=== PATIENT | female | born 1960 | race Caucasian/White ===

== ENCOUNTER 2017-01-10 09:42 | Emergency (ER) | payer OTHER ==
[~2017-01-10] VITALS: Wt 65.5 kg
[2017-01-10] MEDS ORDERED: morphine 4 MG/ML VIAL IM STA (11:28)
[2017-01-10] MEDS ORDERED: predniSONE 20 MG TAB PO ONE (11:30)
--- NOTE | 2017-01-10 12:18 | RADRPT ---
PROCEDURE: Chest x-ray CLINICAL INDICATION: Chest pain TECHNIQUE: Chest single view COMPARISON: None FINDINGS: The heart is normal in size. The pulmonary vessels are normal in caliber. The lungs are clear. Th e costophrenic angles are sharp. The visualized bony thorax is unremarkable. IMPRESSION: No acute cardiopulmonary disease. RPTAT: HH .Mono Padilla MD, Date Time Electronically viewed and signed by .Mono Padilla MD, MD on 01/10/2017 12:18 .W/
--- NOTE | 2017-01-10 12:23 | RADRPT ---
PROCEDURE: Thoracic Spine. CLINICAL INDICATION: Back Pain TECHNIQUE: AP and lateral views of the thoracic spine are available for review COMPARISON: None available FINDINGS: The upper thoracic spine is not well visualized on the lateral view. There is dextro convex curvature of the thoracic spine. The normal thoracic kyphosis is present. Alignment is intact and normal. The vertebral body heights are preserved. There are multilevel minimal degenerative changes of thoracic spine with decreased disk spaces and o steophytosis. No fracture or dislocation is seen. No radiopaque foreign body is identified. The paraspinous soft tissues are unremarkable. IMPRESSION: 1. No acute thoracic spine fracture or subluxation. 2. Minimal thoracic discogenic disease. 3. Dextroconvex curvature of the thoracic spine. RPTAT: HH .Maddy Montague MD, MD Date Time Electronically viewed and signed by .Maddy Montague MD, MD on 01/10/2017 12:23 .N/
[2017-01-10] MEDS ORDERED: KETOROLAC 60 MG INJ IM STA (12:59)
[2017-01-10] MEDS ORDERED: IBUP-1542 PO (13:17)
[2017-01-10] MEDS ORDERED: DIAZ-90 PO (13:17)
[2017-01-10] MEDS ORDERED: PRED20TA PO (13:18)
--- NOTE | 2017-01-10 13:49 | ERD ---
ER Documentation Chief Complaint Chief Complaint l. upper back pain rad into l. arm x8 days, denies trauma HPI This is a 56-year-old female presents to the ER with left-sided upper back pain that radiates to the left side of her shoulder and down into her arm. Pain is Severe and constant, it is worse she tries to lift her arm. Patient has been having this pain since last Sunday. Patient went to [place] and cervical spine x-rays were done which were negative. She was sent home with naproxen and diclofenac. That the pain continues. She denies any back or shoulder trauma. She denies any neck trauma. Patient denies any neck pain or neck stiffness. She denies Any fevers or chills. She denies any weakness of her upper extremity. Denies any chest pain or shortness of breath. ROS 12 point review of systems was done, all negative except per HPI. Medications Home Meds Active Scripts Prednisone* (Prednisone*) 20 Mg Tab, 60 MG PO DAILY for 4 Days, TAB Prov:TEE STEWARTNA C 01/10/17 Ibuprofen* (Motrin*) 600 Mg Tab, 600 MG PO Q6, #30 TAB Prov:TERRYHARLEY C 01/10/17 Diazepam* (Valium*) 5 Mg Tablet, 5 MG PO Q8, #9 TAB Prov:TERRYTEEHARLEY C 01/10/17 Allergies Allergies: Coded Allergies: No Known Allergy (Unverified , 01/10/17) PMhx/Soc Medical and Surgical Hx: pt denies Medical Hx, pt denies Surgical Hx Hx Alcohol Use: No Hx Substance Use: No Hx Tobacco Use: No Smoking Status: Never smoker Physical Exam Vitals Vital Signs Date Time Temp Pulse Resp B/P Pulse Ox O2 Delivery O2 Flow Rate FiO2 01/10/17 09:48 98.9 75 20 160/69 99 Physical Exam GENERAL: The patient is well developed and appropriate for usual state of health , in no apparent distress. HEENT: Atraumatic. CHEST: Clear to auscultation bilaterally. There are no rales, wheezes or rhonchi. HEART: Regular rate and rhythm. No murmurs, clicks, rubs or gallops. BACK: No midline or flank tenderness. EXTREMITIES:patient has normal passive ROM of the left shoulder. She is not ttp along the ac joint, bicipital tendon. ttp to the scapula. ttp along the thoracic spine. Tender to palpation to the wrist, elbow or wrist. Radial ulnar and median nerves are intact. Patient has normal strength of bilateral arms. no erythema or areas of ecchymosis. NEURO: Alert and oriented. Cranial nerves II through XII are intact. Motor strength in all 4 extremities with 5/5 strength. Sensation grossly intact. Normal speech and gait. SKIN: There is no apparent rash or petechia. The skin is warm and dry. Results 24 hrs Current Medications Medications (Trade) Dose Ordered Sig/Niya Route PRN Reason Start Time Stop Time Status Last Admin Dose Admin Morphine Sulfate (morphine) 4 mg ONCE STAT IM 01/10/17 11:28 01/10/17 11:30 DC 01/10/17 11:35 Prednisone (Prednisone) 60 mg ONCE ONCE PO 01/10/17 11:30 01/10/17 11:31 DC 01/10/17 11:35 Ketorolac Tromethamine (Toradol) 60 mg ONCE STAT IM 01/10/17 12:59 01/10/17 13:00 DC Procedures/MDM EKG 86bpm no ST elevation or t wave inversion. This case with my supervising physician , this is likely muscle spasms , patient's physical examination is benign consistent with muscle pain. Is neurovascularly intact and is hopeful range of motion of bilateral upper extremities. There is no history of trauma. X-ray was negative for any fractures or dislocations. I doubt transverse myelitis, aortic dissection or discitis. Afebrile extremely well-appearing. I doubt spinal cord injury, as there is no history of trauma. Suspicion for acute cardiac etiology is low as EKG is normal. Will be sent home with a short course of steroids, ibuprofen and Valium. She is to follow-up with her primary care doctor within 1-2 days return to ER sooner if symptoms worsen. My medical decision making sure with the patient she understands and agrees with plan. Departure Diagnosis: Primary Impression: Back pain Condition: Stable Patient Instructions: Muscle Spasm, Back Pain (Acute Or Chronic) Additional Instructions: Call your primary care doctor TOMORROW for an appointment during the next 1-2 days.See the doctor sooner or return here if your condition worsens before your appointment time. HARLEY STEWART Jan 10, 2017 13:47
== END 2017-01-10 14:09 | disposition home or self-care (01) ==
LOC: FTE 09:42
DX: M54.6 Pain in thoracic spine (principal)
CPT/HCPCS: 71010; 72072; 93005; 96372; J1885; J2270; J7512; Z7502

== ENCOUNTER → 2017-01-14 | Emergency (ER) | payer OTHER ==
[~2017-01-14] VITALS: Ht 157.5 cm; Wt 65.7 kg
[~2017-01-14] MED LIST: ALPR0.5T PO; DIAZ-90 PO; IBUP-1542 PO; KETOROLAC 30 MG INJ IM STA; PRED20TA PO
[2017-01-14 17:11] VITALS: Ht 157.5 cm; Wt 65.7 kg
--- NOTE | 2017-01-14 18:04 | ERD ---
ER Documentation Chief Complaint Chief Complaint Complains of left shoulder and neck pain radiating down left arm HPI 56-year-old woman has continued left lateral neck, left trapezius, left shoulder pain associated with paresthesias radiating down the left arm to the fingertips. She has had these symptoms for just over a week, and was treated at this emergency department a few days ago with oral prednisone, morphine and ketorolac IM injections. She denies fevers or chills, no chest pain exertional or otherwise, no headache, no blurry vision, no weakness in her arms or legs, no trauma, no domestic violence. Patient denies neck pain or stiffness. Pain is worse with movement of the neck or left shoulder. ROS All systems reviewed and are negative except as per history of present illness. Medications Home Meds Active Scripts Alprazolam* (Xanax*) 0.5 Mg Tab, 0.5 MG PO TID for MUSCLE SPASMS, #12 TAB Prov:SANTIAGO NELSON MD 01/14/17 Prednisone* (Prednisone*) 20 Mg Tab, 60 MG PO DAILY for 4 Days, TAB Prov:HARLEY STEWART 01/10/17 Ibuprofen* (Motrin*) 600 Mg Tab, 600 MG PO Q6, #30 TAB Prov:HARLEY STEWART 01/10/17 Diazepam* (Valium*) 5 Mg Tablet, 5 MG PO Q8, #9 TAB Prov:HARLEY STEWART 01/10/17 Allergies Allergies: Coded Allergies: No Known Allergy (Unverified , 01/10/17) PMhx/Soc Hx Alcohol Use: No Hx Substance Use: No Hx Tobacco Use: No Smoking Status: Never smoker FmHx Family History: No diabetes Physical Exam Vitals Vital Signs Date Time Temp Pulse Resp B/P Pulse Ox O2 Delivery O2 Flow Rate FiO2 01/14/17 17:11 98.0 83 20 140/67 99 Physical Exam GENERAL: Well-developed, well-nourished, anxious, afebrile HEENT: Moist mucous membranes, pink conjunctiva, no cervical spine tenderness or step-off deformities, no goiter, no jaundice or icterus, extraocular movements intact without pain. No submandibular induration, and no pharyngeal erythema NEURO: Alert and oriented 3, cranial nerves II through XII intact bilaterally, pupils equal round reactive to light, no focal deficits or facial asymmetry, sensation intact distally Strength 5/5 in upper and lower extremities bilaterally CARDIAC: Regular rate and rhythm, no murmurs rubs or gallops LUNGS: Clear bilaterally no wheezing crackles or stridor ABDOMEN: Soft nontender, no guarding, no rigidity, no rebound, no psoas sign no obturator sign. Normoactive bowel sounds SKIN: Warm and dry to touch, no abrasions, contusions, or hematomas, no lacerations, no ecchymosis, no target lesions, and without ulcers EXTREMITIES: No clubbing cyanosis or edema, calves are bilaterally symmetrical, no Homans sign, no popliteal cord sign. Distal pulses equal and bilateral PSYCH: Anxious appearing Results 24 hrs Current Medications Medications (Trade) Dose Ordered Sig/Niya Route PRN Reason Start Time Stop Time Status Last Admin Dose Admin Ketorolac Tromethamine (Toradol) 30 mg ONCE STAT IM 01/14/17 17:55 01/14/17 17:57 DC Procedures/MDM I administered Toradol 30 IM 1. Left upper extremity sling was placed with the elbow flexed to 90 for comfort and supportive measures. Splint Assessment: Neurovascularly intact post splint placement with good fit. EKG performed, read by me: 70 bpm, normal sinus rhythm, normal axis, no acute ST segment changes, narrow QRS complex, with good R-wave progression in precordial leads. Differential diagnoses considered, included but not limited to acute coronary syndrome, pulmonary embolism, aortic dissection, abdominal aortic aneurysm, sepsis, stroke, meningitis, encephalitis, pneumonia, appendicitis, cholecystitis , bowel obstruction, pyelonephritis, nephrolithiasis, cystitis, as well as metabolic, hematologic, and electrolyte abnormalities. As well as abscess, cellulitis, fractures, and dislocations. Patient feels much better at this time, and vital signs are normal, symptoms have improved. I did give strict instructions to return to the ED if symptoms continue or worsen, patient will otherwise follow-up with primary care physician. Patient understood instructions and agreed to plan. Disclaimer: Inadvertent spelling and grammatical errors are likely due to EHR/ dictation software use and do not reflect on the overall quality of patient care. Also, please note that the electronic time recorded on this note does not necessarily reflect the actual time of the patient encounter. Departure Diagnosis: Primary Impression: Cervical radiculopathy Condition: Good Patient Instructions: Shoulder Sprain , Muscle Strain, Extremity SANTIAGO NELSON MD Jan 14, 2017 18:04
== END | disposition home or self-care (01) ==
LOC: E/R 17:06
DX: M54.12 Radiculopathy, cervical region (principal); R07.9 Chest pain, unspecified
CPT/HCPCS: 93005; 96372; J1885; Z7502